=== PATIENT | male | born 1940 | race Caucasian/White ===

== ENCOUNTER 2019-12-25 10:49 | Inpatient (IN) | payer MEDICARE ==
[~2019-12-25] VITALS: Ht 162.6 cm; Wt 66.7 kg
[2019-12-25 11:58] LABS: BASOPHILS % 0.2 % (0.0-1.0); EOSINOPHILS % 0.6 % (0.0-6.0); HEMATOCRIT 29.7 % (38.2-49.6); HEMOGLOBIN 9.5 g/dL (14.0-18.0); LYMPHOCYTES # (AUTO) 0.9 (1.0-3.2); LYMPHOCYTES % 13.9 % (18.0-39.1); MEAN CORPUSCULAR HEMOGLOBIN 29.6 pg (28-32); MEAN CORPUSCULAR VOLUME 92.5 fL (81-99); MONOCYTES # (AUTO) 0.7 (0.2-0.8); MONOCYTES % 10.9 % (4.4-11.3); NEUTROPHILS # (AUTO) 4.6 (2.1-6.9); NEUTROPHILS % 74.2 % (38.7-80.0); PLATELET COUNT 205 x10e3/uL (140-360); RED BLOOD COUNT 3.21 x10e6/uL (4.3-5.7); RED CELL DISTRIBUTION WIDTH 16.1 % (11.7-14.4)
--- NOTE | 2019-12-25 12:02 | Diagnostic Imaging Report ---
EXAMINATION: CHEST SINGLE (PORTABLE) INDICATION: Cough COMPARISON: None FINDINGS: LINES/TUBES:Right IJ tunneled hemodialysis catheter terminates in the right atrium. LUNGS:The lungs are well-inflated. Mild left basilar patchy opacities. PLEURA:No pleural effusion or pneumothorax. MEDIASTINUM:The cardiomediastinal silhouette appears normal in size and shape. Atherosclerotic calcifications of the thoracic aorta. BONES/SOFT TISSUES:No acute osseous injury. ABDOMEN:No free air under the diaphragm. IMPRESSION: Mild left basilar patchy opacities may represent subsegmental atelectasis or alternatively aspiration or pneumonia in the proper clinical setting. Signed by: Angélica Mauricio MD on 12/25/2019 11:59 AM
[2019-12-25 12:06] LABS: INR 1.08; PROTHROMBIN TIME 14.6 seconds (11.9-14.5)
[2019-12-25 12:07] LABS: PARTIAL THROMBOPLASTIN TIME 33.4 seconds (23.8-35.5)
[2019-12-25 12:16] LABS: ALBUMIN 3.5 g/dL (3.5-5.0); ALBUMIN/GLOBULIN RATIO 1.1 (0.8-2.0); ANION GAP 13.8 mmol/L (8-16); CALCIUM 9.3 mg/dL (8.4-10.2); CREATININE, SERUM 1.56 mg/dL (0.72-1.25)
[2019-12-25 12:18] LABS: POTASSIUM 2.8 mmol/L (3.5-5.1)
[2019-12-25 12:22] LABS: CREATINE KINASE MB 1.6 ng/mL (0-5.0)
[2019-12-25] MEDS ORDERED: CEFTRIAXONE SOD 1 GM/NS 50 ML 50 ML IV SCH (12:30)
[2019-12-25] MEDS: PIPERACILLIN/TAZO 2.25 GM 50 ML IV SCH ×2 (13:39→20:24)
[2019-12-25] MEDS ORDERED: POTASSIUM CHLORIDE 20MEQ/15ML UDC NG SCH (14:00)
[2019-12-25] MEDS: AZITHROMYCIN 500MG/NS 250 ML 250 ML IV SCH (14:01)
--- NOTE | 2019-12-25 14:05 | Emergency Department Note ---
History of Present Illnes History of Present Illness Chief Complaint: Respiratory History of Present Illness This is a 79 year old male BROUGHT IN BY EMS FOR EVALUATION OF PNEUMONIA FROM [employer] [employer]. 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 Any updates have been documented here. Past Medical History Recent Fever: No Clinical Suspicion of Infectio: Yes New/Unexplained Change in Ment: Yes Past Medical History: Hypertension Other Surgery: DIALYSIS CATHETER PEG TUBE CEA IVC FILTER-TO PREVENT BLOOD CLOTS CVA Social History Smoking Cessation: Former smoker Counseling Performed: No Alcohol Use: None Any Illegal Drug Use: No TB Exposure/Symptoms: No Physically hurt or threatened: No Family History Family history of heart diseas: No Other Any Pre-Existing Lines (PICC,: No Review of Systems ROS Narrative Unable to obtain ROS: altered mental status (NO SPEECH, HX AND ROS PER DAUGHTER) Review of Systems Constitutional: Reports no symptoms EENTM: Reports no symptoms Cardiovascular: Reports no symptoms Respiratory: Reports as per HPI Gastrointestinal: Reports no symptoms Genitourinary: Reports no symptoms Musculoskeletal: Reports no symptoms Integumentary: Reports no symptoms Neurological: Reports no symptoms Psychological: Reports no symptoms Endocrine: Reports no symptoms Hematological/Lymphatic: Reports no symptoms Physical Exam Related Data Allergies: Coded Allergies: No Known Allergies (Unverified , 12/25/19) Triage Vital Signs Vital Signs Date Time Temp Pulse Resp B/P (MAP) Pulse Ox O2 Delivery O2 Flow Rate FiO2 12/25/19 11:32 71 18 118/83 96 Nasal Cannula 2.0 12/25/19 12:26 98.5 Vital signs reviewed: Yes Physical Exam CONSTITUTIONAL Constitutional: Present well-developed, Present ill appearing (CHRONIC) HENT HENT: Present normocephalic, Present atraumatic, Present oropharynx clear/moist, Present nose normal HENT L/R: Present left ext ear normal, Present right ext ear normal EYES Eyes: Reports PERRL, Reports conjunctivae normal NECK Neck: Present ROM normal PULMONARY Pulmonary: Present effort normal, Present rhonchi CARDIOVASCULAR Cardiovascular: Present regular rhythm, Present heart sounds normal, Present capillary refill normal, Present normal rate GASTROINTESTINAL Abdominal: Present soft, Present nontender, Present bowel sounds normal, Present other (G-TUBE PRESENT) GENITOURINARY Genitourinary: Present exam deferred SKIN Skin: Present warm, Present dry MUSCULOSKELETAL Musculoskeletal: Present ROM normal, Present other (RIGHT TUNNELED IJ HD CATH) NEUROLOGICAL Neurological: Present alert, Present weakness (0/5 STR RIGHT ARM AND LEG), Present other (NO SPEECH) PSYCHOLOGICAL Psychological: Present mood/affect normal, Present judgement normal Results Laboratory Result Diagram: 12/25/19 1120 12/25/19 1120 Laboratory Laboratory Tests Test 12/25/19 12:25 12/25/19 11:20 White Blood Count 6.25 x10e3/uL (4.8-10.8) Red Blood Count 3.21 x10e6/uL (4.3-5.7) Hemoglobin 9.5 g/dL (14.0-18.0) Hematocrit 29.7 % (38.2-49.6) Mean Corpuscular Volume 92.5 fL (81-99) Mean Corpuscular Hemoglobin 29.6 pg (28-32) Mean Corpuscular Hemoglobin Concent 32.0 g/dL (31-35) Red Cell Distribution Width 16.1 % (11.7-14.4) Platelet Count 205 x10e3/uL (140-360) Neutrophils (%) (Auto) 74.2 % (38.7-80.0) Lymphocytes (%) (Auto) 13.9 % (18.0-39.1) Monocytes (%) (Auto) 10.9 % (4.4-11.3) Eosinophils (%) (Auto) 0.6 % (0.0-6.0) Basophils (%) (Auto) 0.2 % (0.0-1.0) Neutrophils # (Auto) 4.6 (2.1-6.9) Lymphocytes # (Auto) 0.9 (1.0-3.2) Monocytes # (Auto) 0.7 (0.2-0.8) Eosinophils # (Auto) 0.0 (0.0-0.4) Basophils # (Auto) 0.0 (0.0-0.1) Absolute Immature Granulocyte (auto 0.01 x10e3/uL (0-0.1) Prothrombin Time 14.6 seconds (11.9-14.5) Prothromb Time International Ratio 1.08 Activated Partial Thromboplast Time 33.4 seconds (23.8-35.5) Sodium Level 141 mmol/L (136-145) Potassium Level 2.8 mmol/L (3.5-5.1) Chloride Level 101 mmol/L (98-107) Carbon Dioxide Level 29 mmol/L (22-29) Anion Gap 13.8 mmol/L (8-16) Blood Urea Nitrogen 36 mg/dL (7-26) Creatinine 1.56 mg/dL (0.72-1.25) Estimat Glomerular Filtration Rate 43 ML/MIN (60-) BUN/Creatinine Ratio 23 (6-25) Glucose Level 117 mg/dL (74-118) Lactic Acid Level 0.8 mmol/L (0.5-2.0) Calcium Level 9.3 mg/dL (8.4-10.2) Magnesium Level 1.7 MG/DL (1.3-2.1) Total Bilirubin 0.7 mg/dL (0.2-1.2) Aspartate Amino Transf (AST/SGOT) 26 IU/L (5-34) Alanine Aminotransferase (ALT/SGPT) 36 IU/L (0-55) Alkaline Phosphatase 58 IU/L (40-150) Creatine Kinase 25 IU/L (30-200) Creatine Kinase MB 1.60 ng/mL (0-5.0) Troponin I 0.059 ng/mL (0-0.300) B-Type Natriuretic Peptide 59.6 pg/mL (0-100) Total Protein 6.6 g/dL (6.5-8.1) Albumin 3.5 g/dL (3.5-5.0) Globulin 3.1 g/dL (2.3-3.5) Albumin/Globulin Ratio 1.1 (0.8-2.0) Lab results reviewed: Yes Imaging Imaging results reviewed: Yes Assessment & Plan Medical Decision Making MDM CBC, CHEM, ECG, CARDIACS, BLOOD CX'S, CXR, LACTIC - R/O PNEUMONIA, VOLUME OVERLOAD (ESRD), CHF, SEPSIS Reassessment Reassessment ADMIT TO Abhi RUEDA I GAVE DARIUS (PT HAD H/O STAPH PNEUMONIA IN July, WILL ALSO COVER FOR ASPIRATION) AND MARCO Assessment & Plan Final Impression: (1) Pneumonia (2) ESRD (end stage renal disease) (3) Hypokalemia Depart Disposition: ADMITTED Last Vital Signs Date Time Temp Pulse Resp B/P (MAP) Pulse Ox O2 Delivery O2 Flow Rate FiO2 12/25/19 12:26 98.5 76 20 132/81 100 Nasal Cannula 2.0 Medications in the ED Ceftriaxone Sodium 50 ml @ 100 mls/hr Q24H IV ; Start 12/25/19 at 12:30; Stop 12/25/19 at 12:04; Status DC Azithromycin 250 ml @ 200 mls/hr Q24H IV ; Start 12/25/19 at 13:00; Stop 01/01/20 at 12:59 Piperacillin Sod/ Tazobactam Sod 50 ml @ 50 mls/hr Q12HR IV Last administered on 12/25/19at 13:39; Admin Dose 50 MLS/HR; Start 12/25/19 at 12:15; Stop 01/01/20 at 12:14 VLADISLAV GALVEZ MD Dec 25, 2019 14:05
--- NOTE | 2019-12-25 15:55 | NUR ---
RCD PT FROM ER BY BED PT IS ALERT BUT NON VERBAL VITALS CHECKED PT RESTING ON BED IV PATENT BY SALINE FLUSH,ADMISSION ASSESSMENT AND HISTORY DONE PARALYSED ON RIGHT SIDE DUE TO CVA PT ON PEG TUBE , FAMILY AT BED SIDE INSTRUCTED THE PT AND FAMILY REGARDING HOSPITAL POLICY AND ROUTINE BED LOW AND LOCKED CALL LIGHT IN REACH
[2019-12-25] MEDS ORDERED: ALBUTEROL/IPRATROPIUM 3 ML NEB NEB PRN (16:00)
[2019-12-25] MEDS ORDERED: ASPIRIN 81 MG CHEW TAB PO ONE (16:00)
[2019-12-25] MEDS ORDERED: AMLODIPINE BESY10 MG PO (16:09)
[2019-12-25 16:30] VITALS: BP 129/82
--- NOTE | 2019-12-25 17:22 | NUR ---
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 At half-way, he was noted to have increased work of breathing with copious secretions. His O2 sat today was down to 88% and was placed on nasal cannula oxygen. He was sent to [facility] ER for further evaluation. Here CXR showed LLL consolidation concerning for pneumonia, likely aspiration. Afebrile with stable vitals. Admitted to acute medical floor for further management and care. Per family at bedside, patient was treated for pneumonia at [facility] in October 2019. During that hospitalization he was declared ESRD and permacath was placed. Since then has been receiving TThS HD. Review of Systems (Patient is non-verbal, however history obtained from family at bedside) General: No fever, chills, or fatigue HEENT: Denies visual changes, hearing loss, congestion, rhinorrhea, or bleeding Respiratory: + SOB, +cough, No hemoptysis Cardiovascular: No chest pain, palpitations, BARRIENTOS, orthopnea, PND, leg edema, or claudication Gastrointestinal: No nausea, vomiting, diarrhea, constipation, or abdominal pain G/U: Denies dysuria, hematuria, incontinence, or discharge Musculoskeletal: No myalgias or arthralgias Neurological: No syncope, seizures, headaches, changes in sensation, or weakness Hematology: No bruising, bleeding, or lymphadenopathy Endocrine: No heat or cold intolerance, hair loss, or weight changes Skin: No rashes, sores, itching, bruising Psychiatric: Denies depression or elevated mood, or anxiety Past Medical History CVA HTN ESRD Past Surgical History PEG tube placement 2019 Family History Stroke in his mother Social History No alcohol use No tobacco use No drug use Allergies NKDA Physical Exam Vitals: Temp: 98.5 P: 70 BP: 111/73 RR: 18 SpO2 100% on 2L General Appearance: The patient is non-verbal, appears to be in moderate distress on 2L nasal cannula HEENT: Head is normocephalic, atraumatic. Nontender sinuses. Pupils are equal and reactive. The nares are patent. Oropharynx is moist and clear without lesions. Neck: Supple without lymphadenopathy. No JVD. 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 Normal S1 and S2 without S3/S4. No murmurs, rubs or gallops. Peripheral pulses symmetric +2. Respiratory / Chest: Course breathsounds in left lung field, primarily in left lower lobe. right upper chest permacath in place with no erythema or discharge Abdomen: Soft, nontender, nondistended with good bowel sounds heard. No clinical organomegaly. Peg tube is in place with no erythema or discharge. Renal: There is no costovertebral angle tenderness. Extremities: Without cyanosis, clubbing or edema. Preserved ROM. Neurological: Unable to assess orientation, is alert and responds to verbal stimuli, rigid RUE and RLE with no autonomous movement. LUE and LLE moving but weak. Assessment/Plan #Aspiration pneumonia - LLL consolidation on CXR, given hx of dysphagia, aspiration PNA most likely - monitor WBC; afebrile with vitals stable at this time - continue Zosyn and azithromycin to cover atypicals, anaerobes, and oral kathy - was treated for PNA at [facility] in October, however this was >1 month ago so will not treat as hospital acquired. #Hypokalemia - K 2.8 on admission, s/p KCL replacement - monitor K and replace carefully given ESRD #ESRD - consulted nephrology for HD while inpatient - on Mon schedule #Hypertension - continue home medications Noel Monterroso MD Internal Medicine
[2019-12-25 18:02] VITALS: BP 129/82
--- NOTE | 2019-12-25 18:11 | NUR ---
PEG TUBE FEEDING JEVITY 1.2 ,20 ML WITH50 ML WATER Q4H
[2019-12-25 18:25] LABS: ANION GAP 13.6 mmol/L (8-16); CALCIUM 9.3 mg/dL (8.4-10.2); CREATININE, SERUM 1.62 mg/dL (0.72-1.25); POTASSIUM 3.6 mmol/L (3.5-5.1)
[2019-12-25] MEDS ORDERED: ACETAMINOPHEN325 M1 PO (18:35)
[2019-12-25] MEDS ORDERED: COMBIVENT RESPIM4 GM IH (18:35)
[2019-12-25] MEDS ORDERED: ALLOPURINOL100 MG PEG (18:35)
[2019-12-25] MEDS ORDERED: ASPIRIN81 MG PEG (18:35)
[2019-12-25] MEDS ORDERED: COREG12.5 MG PEG (18:35)
[2019-12-25] MEDS ORDERED: ATORVASTATIN CA20 MG PEG (18:35)
[2019-12-25] MEDS ORDERED: MELATONIN3 MG PO (18:35)
[2019-12-25] MEDS ORDERED: AMANTADINE100 MG PEG (18:35)
--- NOTE | 2019-12-25 18:41 | NUR ---
PT RESTING ON BED BED SIDE REPORT GIVEN TO ONCOMING NURSE
[2019-12-25 18:45] LABS: CREATINE KINASE MB 1.7 ng/mL (0-5.0)
[2019-12-25] MEDS ORDERED: IPRATROPIUM/ALBUTEROL SULFATE 4 GM INH INH PRN (18:45)
[2019-12-25] MEDS ORDERED: ACETAMINOPHEN 325 MG TAB PO PRN (18:45)
--- NOTE | 2019-12-25 19:00 | NUR ---
FROM DR MCCANN GOT NEW ORDERS FOR POTASSIUM
[2019-12-25] MEDS ORDERED: POTASSIUM CHLORIDE 20MEQ/15ML UDC PEG ONE (19:45)
[2019-12-25 20:00] VITALS: BP 111/78
--- NOTE | 2019-12-25 20:00 | NUR ---
PLACEMENT VERIFIED WITH AUSCULTATION, PEG TUBE FEEDING JEVITY 1.2 @20ML/HR WITH50 ML WATER FLUSHES Q4H CONTINUED, PATIENT TOLERATING FEEDING, INTERMITTENT WET COUGHING NOTED, HOB UP >30 DEGREES DURING FEEDINGS, HELD DURING CARE, PT INCONTINENCE BOWEL AND BLADDER, CARE GIVEN DAUGHTER REMAINS AT BEDSIDE, CALL LIGHT WITHIN PT AND DAUGHTERS REACH
[2019-12-25] MEDS ORDERED: SODIUM CHLORIDE 0.9% 50ML 50 ML ONE (20:19)
[2019-12-25] MEDS: ATORVASTATIN 20 MG TAB PEG SCH (20:24)
[2019-12-25] MEDS: MELATONIN 3 MG TAB PO SCH (20:24)
--- NOTE | 2019-12-25 20:30 | Consultation ---
DATE OF CONSULTATION: Initial Nephrology Consultation REASON FOR CONSULTATION: End-stage renal disease. HISTORY OF PRESENT ILLNESS: Mr. Alaniz is a 79-year-old male, who is a dialysis patient. He gets dialysis regularly on Monday, Monday, and Monday at [facility] [place] [place] in [place]. I saw the patient actually yesterday at the dialysis unit. The patient was brought here to this emergency room because he was having some coughing and some shortness of breath. He was brought by [facility]. The patient has had chronic kidney disease. PAST MEDICAL HISTORY: 1. Hypertension. 2. Chronic kidney disease stage 5. 3. The patient has had a PEG tube placed. 4. He has had carotid endarterectomy in the planus. 5. He has IVC filter in place. 6. He has had stroke in the past also. MEDICINES: As per MAR. REVIEW OF SYSTEMS: As per HPI. PHYSICAL EXAMINATION: VITAL SIGNS: Blood pressure 111/73, pulse 74, respiration 13. GENERAL: The patient is not very verbal. HEENT: No increased JVD. The patient has a tunneled dialysis catheter in the right chest wall area. CARDIOVASCULAR: Regular rhythm. LUNGS: Decreased breath sounds at bases bilaterally. ABDOMEN: Decreased bowel sounds. EXTREMITIES: No edema, cyanosis, or clubbing. LABORATORY RESULTS: Hemoglobin and hematocrit 9.5 and 29.7 respectively, white count 6.25. Sodium 141, potassium 2.8, chloride 101, bicarb 29, BUN and creatinine 36 and 1.56 respectively. IMPRESSION: 1. Chronic kidney disease stage 5. 2. Possible pneumonia. 3. Hypokalemia. 4. Hypertension. PLAN: We will replace the patient's potassium intravenous since that is the most reliable way. His blood pressure is okay at this time. He was dialyzed yesterday. We will get him dialyzed tomorrow. I will follow the patient with you. Thank you for this consultation. Ather MD ARIANA Duarte/AMY /[phone]
--- NOTE | 2019-12-25 20:40 | NUR ---
PT COVID RESULT NEGATIVE PER MARKET SALES MANAGER
[2019-12-25 20:43] VITALS: BP 111/78
[2019-12-25] MEDS: HEPARIN SOD (PORCINE) 5,000 UNIT/ML VIAL SC SCH (22:00)
[2019-12-26] VITALS (11 sets, daily range): BP systolic 106–141; BP diastolic 72–85
--- NOTE | 2019-12-26 | NUR ---
CARDIAC ENZYMES #3 DRAWN AND SENT TO LAB, RESULT PENDING
[2019-12-26] MEDS: ALBUTEROL/IPRATROPIUM 3 ML NEB NEB SCH ×2 (00:35→19:40)
[2019-12-26 01:34] LABS: CREATINE KINASE MB 1.3 ng/mL (0-5.0)
[2019-12-26] MEDS: HEPARIN SOD (PORCINE) 5,000 UNIT/ML VIAL SC SCH ×3 (04:41→19:22)
[2019-12-26 05:12] LABS: BASOPHILS % 0.1 % (0.0-1.0); EOSINOPHILS % 0.1 % (0.0-6.0); HEMATOCRIT 28.9 % (38.2-49.6); HEMOGLOBIN 9.2 g/dL (14.0-18.0); LYMPHOCYTES # (AUTO) 0.8 (1.0-3.2); LYMPHOCYTES % 8.9 % (18.0-39.1); MEAN CORPUSCULAR HEMOGLOBIN 29.3 pg (28-32); MEAN CORPUSCULAR HGB CONC 31.8 g/dL (31-35); MONOCYTES # (AUTO) 0.8 (0.2-0.8); MONOCYTES % 9.5 % (4.4-11.3); NEUTROPHILS # (AUTO) 7.1 (2.1-6.9); NEUTROPHILS % 81.1 % (38.7-80.0); PLATELET COUNT 194 x10e3/uL (140-360); RED BLOOD COUNT 3.14 x10e6/uL (4.3-5.7); RED CELL DISTRIBUTION WIDTH 16.1 % (11.7-14.4)
[2019-12-26 05:47] LABS: ALBUMIN 3.2 g/dL (3.5-5.0); ALBUMIN/GLOBULIN RATIO 1.1 (0.8-2.0); ANION GAP 13.4 mmol/L (8-16); CALCIUM 8.8 mg/dL (8.4-10.2); CREATININE, SERUM 1.59 mg/dL (0.72-1.25); POTASSIUM 3.4 mmol/L (3.5-5.1)
[2019-12-26 06:33] LABS: MAGNESIUM 1.7 MG/DL (1.3-2.1); PHOSPHORUS 2.9 MG/DL (2.3-4.7)
--- NOTE | 2019-12-26 09:20 | NUR ---
Progress Note Subjective No acute overnight events. Patient had calm night and per family his coughing has improved. No longer as labored in his breathing. Physical Exam Vitals: Temp: 98.4 P: 70 BP: 141/85 RR: 20 SpO2 98% on 2L General Appearance: The patient is non-verbal, appears to be in mild distress on 2L nasal cannula HEENT: Head is normocephalic, atraumatic. Nontender sinuses. Pupils are equal and reactive. The nares are patent. Oropharynx is moist and clear without lesions. Neck: Supple without lymphadenopathy. No JVD. 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 Normal S1 and S2 without S3/S4. No murmurs, rubs or gallops. Peripheral pulses symmetric +2. Respiratory / Chest: Course breathsounds in left lung field, primarily in left lower lobe. right upper chest permacath in place with no erythema or discharge Abdomen: Soft, nontender, nondistended with good bowel sounds heard. No clinical organomegaly. Peg tube is in place with no erythema or discharge. Renal: There is no costovertebral angle tenderness. Extremities: Without cyanosis, clubbing or edema. Preserved ROM. Neurological: Unable to assess orientation, is alert and responds to verbal stimuli, rigid RUE and RLE with no autonomous movement. LUE and LLE moving but weak. Assessment/Plan #Aspiration pneumonia - DDX: Community acquired pneumonia, aspiration pneumonia, MRSA Pneumonia - LLL consolidation on CXR, given hx of dysphagia, aspiration PNA most likely - was treated for PNA at [facility] in October, however this was >1 month ago so will not treat as hospital acquired. 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
[2019-12-26] MEDS: ASPIRIN 81 MG CHEW TAB PEG SCH (10:18)
[2019-12-26] MEDS: ALLOPURINOL 100 MG TAB PEG SCH (10:18)
[2019-12-26] MEDS: AMANTADINE HCL 100 MG CAP PEG SCH ×2 (10:18→19:21)
[2019-12-26] MEDS: CARVEDILOL 12.5 MG TAB PEG SCH ×2 (10:18→19:36)
[2019-12-26] MEDS: PIPERACILLIN/TAZO 2.25 GM 50 ML IV SCH ×3 (10:19→19:22)
--- NOTE | 2019-12-26 12:27 | NUR ---
Speech Therapy NOTE: Pt sleeping, fatigued, unable to participate in BSE at this time. Spoke at length with daughter, Mary. Pt with history of CVA, COVID, peg tube placement, and tracheostomy. in July of this year. Pt with limited verbalizations and reduced processing. Discussed at length importance of oral care, supplies brought to room for daughter. Will follow up with pt in afternoon on 12/27/19 as pt is more alert at that time of day. Plan to complete oral care and BSE on 12/27/19, it is NOT a dialysis day and pt level of alertness should be improved. Handoff to DIANA Zepeda
[2019-12-26] MEDS ORDERED: POTASSIUM CHLORIDE 20 MEQ TAB CR PO ONE (13:45)
[2019-12-26] MEDS: AZITHROMYCIN 500MG/NS 250 ML 250 ML IV SCH (13:46)
--- NOTE | 2019-12-26 15:46 | NUR ---
Skilled PT services not indicated at this time since patient is at his baseline functional level and due to poor rehab potential. Thank you Addendum: 12/26/19 at 1547 by Marco A valdivia PT Amended: Links added.
--- NOTE | 2019-12-26 15:56 | NUR ---
Nutrition Intervention Note RD Recommendation(s) for Physician: -Recommend modifying formula to Nepro @ goal rate of 50 mL/hr (provides 2160 kcal, 97 g protein, and 872 mL water) -Water/fluid management per MD -Speech therapy to assess swallowing ability Plan of Care: RD following, monitoring for tolerance and adequacy, tube feed recommendation Nutrition reason for involvement: consult, diagnosis ESRD, and enteral nutriton RD Assessment (12/26/19) Pt is a 79 year old male admitted with ESRD, hypokalemia, and pneumonia. RD received consult. Pt was sleeping at time of visit; therefore, spoke to pts daughter at bedside. Pts daughter stated pt had lost weight and used to weigh 175 lbs in July 2019. Pt currently has a weight of 147 lbs in chart. This would be a 16% weight loss in 5 months which is considered to be significant weight loss. Pt is from a senior care and has a PEG tube. Pts daughter was unsure of pts usual tube feed formula or regimen. Unable to perform NFPE at time of visit since pt was sleeping. No N/V reported. Speech therapy attempted to evaluate pt but it is noted that pt was sleeping and too lethargic for assessment. Recommendations provided. Will continue to monitor. Principal Problems/Diagnoses: ESRD, hypokalemia, and pneumonia PMH: Hypertension, Chronic kidney disease stage 5, PEG tube, carotid endarterectomy in the planus, He has IVC filter in place, He has had stroke in the past also. I/O: 120/- GI: flat/soft abdomen Skin: discolored sacrum Labs: (12/25) Na 143, K 3.4, BUN 42, Cr 1.59, Glu 162, Ca 8.8 Meds: antibiotics, heparin, lipitor Ht: 64 in Wt: 147 lbs BMI: 25.2 kg/m2 IBW: 130 lbs Malnutrition Evaluation (12/26/19) The patient does not meet criteria for a specified degree of malnutrition at this time. Will re-evaluate at follow-up as appropriate. Energy intake: Unable to assess Weight loss: >10% in ~ 6 months (Chronic) Fat loss: unable to evaluate (pt was sleeping) Muscle loss: unable to evaluate (pt was sleeping) Supporting Evidence: Fluid accumulation: no edema per MD note Functional Status: unable to evaluate Nutrition Prescription (Diet Order): Jevity 1.2 @ goal of 60 mL/hr infusing at 20 mL/hr at time of visit Estimated Nutritional Needs: 3755-2316 calories/day (30-35 kcal/kg CBW) 80-100 g protein/day (1.2-1.5 g pro/kg CBW) Diet Adequacy: Not meeting calorie needs, Not meeting protein needs Tolerance: Tolerating TF Diet Education Needs Assessment: Diet education not indicated Nutrition Care Level: high Nutrition Diagnosis: Inadequate oral intake related to decreased ability to consume sufficient energy as evidenced by pt requiring enteral nutrition. Goal: Patient will meet 75-100% of estimated needs by follow up Progress: N/A Interventions: - Composition, Rate, Route, Recommended Modifications, Collaboration with other providers Monitoring/Evaluation: -Total energy intake, Total protein intake, Formula/Solution, Weight change Signed: Radha Elias RD, LD
[2019-12-26] MEDS ORDERED: HEPARIN SOD (PORCINE) 1000 UNIT/ML SDV IV PRN (17:00)
[2019-12-26] MEDS ORDERED: SODIUM CHLORIDE 0.9% 1000ML 2,000 ML IV PRN (17:00)
[2019-12-26] MEDS: EPOETIN ALFA-EPBX 10,000 UNIT/ML VIAL SC SCH (19:21)
[2019-12-26] MEDS: ATORVASTATIN 20 MG TAB PEG SCH (19:21)
[2019-12-26] MEDS: MELATONIN 3 MG TAB PO SCH (19:21)
[2019-12-26] MEDS ORDERED: SODIUM CHLORIDE 0.9% 50ML 50 ML ONE (19:26)
[2019-12-27] VITALS (10 sets, daily range): BP systolic 102–136; BP diastolic 65–83
[2019-12-27] MEDS: ALBUTEROL/IPRATROPIUM 3 ML NEB NEB SCH ×6 (00:15→19:15)
[2019-12-27] MEDS: PIPERACILLIN/TAZO 2.25 GM 50 ML IV SCH ×4 (03:29→21:01)
[2019-12-27] MEDS: HEPARIN SOD (PORCINE) 5,000 UNIT/ML VIAL SC SCH ×3 (04:36→22:35)
[2019-12-27 04:49] LABS: BASOPHILS % 0.2 % (0.0-1.0); EOSINOPHILS # (AUTO) 0.1 (0.0-0.4); EOSINOPHILS % 2.1 % (0.0-6.0); HEMATOCRIT 28.3 % (38.2-49.6); HEMOGLOBIN 8.9 g/dL (14.0-18.0); LYMPHOCYTES # (AUTO) 1.1 (1.0-3.2); LYMPHOCYTES % 16.8 % (18.0-39.1); MEAN CORPUSCULAR HEMOGLOBIN 29.5 pg (28-32); MEAN CORPUSCULAR HGB CONC 31.4 g/dL (31-35); MEAN CORPUSCULAR VOLUME 93.7 fL (81-99); MONOCYTES # (AUTO) 0.8 (0.2-0.8); MONOCYTES % 11.6 % (4.4-11.3); NEUTROPHILS # (AUTO) 4.5 (2.1-6.9); NEUTROPHILS % 68.7 % (38.7-80.0); PLATELET COUNT 208 x10e3/uL (140-360); RED BLOOD COUNT 3.02 x10e6/uL (4.3-5.7); RED CELL DISTRIBUTION WIDTH 16.1 % (11.7-14.4)
[2019-12-27 05:18] LABS: ANION GAP 12.5 mmol/L (8-16); CALCIUM 8.9 mg/dL (8.4-10.2); CREATININE, SERUM 1.29 mg/dL (0.72-1.25); POTASSIUM 3.5 mmol/L (3.5-5.1)
[2019-12-27] MEDS: ASPIRIN 81 MG CHEW TAB PEG SCH (09:27)
[2019-12-27] MEDS: CARVEDILOL 12.5 MG TAB PEG SCH ×2 (09:28→17:01)
[2019-12-27] MEDS: ALLOPURINOL 100 MG TAB PEG SCH (09:28)
[2019-12-27] MEDS: AMANTADINE HCL 100 MG CAP PEG SCH ×2 (09:28→17:01)
--- NOTE | 2019-12-27 10:14 | NUR ---
NEW TUBE FEED WAS STARTED AT 50CC/HR
--- NOTE | 2019-12-27 11:41 | NUR ---
Received SNF eval order. Spoke to pt's daughter Sheela at bedside and explained need for continued IV abx. She states plan is to return pt back to [facility]. Choice letter signed. Copy given to daughter. IMM letter discussed. She verbalized understanding. Copy given. Signed choice letter and IMM placed in chart. SNF referral/clinical faxed to [facility] at [phone] / P [phone] Tere with admissions was informed of SNF referral.
--- NOTE | 2019-12-27 11:43 | NUR ---
Progress Note Subjective Desaturations to 93% overnight when patient would remove his nasal cannula, but improved after being placed back on 2L. Otherwise no acute overnight medical events. Physical Exam Vitals: Temp: 98.5 P: 66 BP: 113/69 RR: 16 SpO2 100% on 2L General Appearance: The patient is non-verbal, appears to be in mild distress on 2L nasal cannula HEENT: Head is normocephalic, atraumatic. Nontender sinuses. Pupils are equal and reactive. The nares are patent. Oropharynx is moist and clear without lesions. Neck: Supple without lymphadenopathy. No JVD. 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 Normal S1 and S2 without S3/S4. No murmurs, rubs or gallops. Peripheral pulses symmetric +2. Respiratory / Chest: Improved but Course breathsounds in left lung field, primarily in left lower lobe. right upper chest permacath in place with no erythema or discharge Abdomen: Soft, nontender, nondistended with good bowel sounds heard. No clinical organomegaly. Peg tube is in place with no erythema or discharge. Renal: There is no costovertebral angle tenderness. Extremities: Without cyanosis, clubbing or edema. Preserved ROM. Neurological: Unable to assess orientation, is alert and responds to verbal stimuli, rigid RUE and RLE with no autonomous movement. LUE and LLE moving but weak. Assessment/Plan #Aspiration pneumonia - normal WBC; afebrile with vitals stable at this time - continue Zosyn and azithromycin to cover atypicals, anaerobes, and oral kathy - d/c azithromycin after 3rd dose - continue zosyn for total of 7 days ending on 12/31, discussed with case management as he needs SNF for IV abx #acute hypoxemic respiratory failure secondary to pneumonia - unable to wean at this time - will need continued [facility]L [facility] #Hypokalemia, improved - improved after replacement and HD #ESRD - consulted nephrology for HD while inpatient - on Mon schedule - Dr Duarte following, appreciate assistance - s/p HD on 12/25 #Hypertension - continue home medications #Dysphagia secondary to CVA - speech therapy consulted for assistance; suspect that patient should be able to tolerate some PO nutrition - PEG tube feeds #Functional quadriplegia - PT consulted, patient currently at his baseline, however family has been advised on PT exercises - strict bed rest Noel Monterroso MD Internal Medicine
[2019-12-27] MEDS: AZITHROMYCIN 500MG/NS 250 ML 250 ML IV SCH (12:47)
[2019-12-27] MEDS ORDERED: PIPERACIL-TAZ2.25 GM IV (20:35)
[2019-12-27] MEDS ORDERED: HEPARIN SO1000 UNIT1 IV (20:35)
[2019-12-27] MEDS ORDERED: RETACRIT10000 UNIT SC (20:35)
[2019-12-27] MEDS: MELATONIN 3 MG TAB PO SCH (21:00)
[2019-12-27] MEDS: ATORVASTATIN 20 MG TAB PEG SCH (21:01)
[2019-12-28] VITALS (9 sets, daily range): BP systolic 102–144; BP diastolic 67–88
[2019-12-28] MEDS: ALBUTEROL/IPRATROPIUM 3 ML NEB NEB SCH ×6 (03:45→23:59)
[2019-12-28 04:58] LABS: BASOPHILS % 0.4 % (0.0-1.0); EOSINOPHILS # (AUTO) 0.2 (0.0-0.4); EOSINOPHILS % 4.8 % (0.0-6.0); HEMATOCRIT 28.3 % (38.2-49.6); HEMOGLOBIN 8.8 g/dL (14.0-18.0); LYMPHOCYTES # (AUTO) 1.1 (1.0-3.2); LYMPHOCYTES % 21.1 % (18.0-39.1); MEAN CORPUSCULAR HGB CONC 31.1 g/dL (31-35); MEAN CORPUSCULAR VOLUME 96.6 fL (81-99); MONOCYTES # (AUTO) 0.6 (0.2-0.8); NEUTROPHILS # (AUTO) 3.1 (2.1-6.9); NEUTROPHILS % 61.7 % (38.7-80.0); PLATELET COUNT 183 x10e3/uL (140-360); RED BLOOD COUNT 2.93 x10e6/uL (4.3-5.7); RED CELL DISTRIBUTION WIDTH 16.1 % (11.7-14.4)
[2019-12-28 05:15] LABS: ANION GAP 12.4 mmol/L (8-16); CALCIUM 9.3 mg/dL (8.4-10.2); CREATININE, SERUM 1.72 mg/dL (0.72-1.25); POTASSIUM 3.4 mmol/L (3.5-5.1)
[2019-12-28] MEDS: PIPERACILLIN/TAZO 2.25 GM 50 ML IV SCH ×4 (05:29→21:18)
[2019-12-28] MEDS: HEPARIN SOD (PORCINE) 5,000 UNIT/ML VIAL SC SCH ×3 (05:31→21:18)
[2019-12-28] MEDS: CARVEDILOL 12.5 MG TAB PEG SCH ×2 (08:42→16:27)
[2019-12-28] MEDS: ASPIRIN 81 MG CHEW TAB PEG SCH (08:42)
[2019-12-28] MEDS: AMANTADINE HCL 100 MG CAP PEG SCH ×2 (08:43→16:27)
[2019-12-28] MEDS: ALLOPURINOL 100 MG TAB PEG SCH (09:00)
--- NOTE | 2019-12-28 09:01 | NUR ---
started new bottle of tube feeds at ordered 50mL/hr. patient is currently resting in bed receiving dialysis
[2019-12-28] MEDS ORDERED: ALBUMIN 25% 12.5GM 0.25 GM/ML BTL IV PRN (10:45)
[2019-12-28] MEDS: AZITHROMYCIN 500MG/NS 250 ML 250 ML IV SCH (12:40)
--- NOTE | 2019-12-28 14:24 | Progress Note ---
DATE: 12/28/2019 Renal Progress Note SUBJECTIVE: The patient underwent hemodialysis earlier this morning and the patient's daughter is at the bedside. The patient is resting comfortably. OBJECTIVE: VITAL SIGNS: Stable. GENERAL: The patient is in no acute distress. HEENT: No increased JVD. CARDIOVASCULAR: Regular rate and rhythm. LUNGS: Decreased breath sounds. ABDOMEN: Positive bowel sounds. EXTREMITIES: No edema. LABORATORY RESULTS: Sodium 145, potassium 3.4, chloride 107, bicarb 29, BUN and creatinine 38 and 1.72 respectively. IMPRESSION: 1. Chronic kidney disease stage 5. 2. Hypokalemia. 3. Pneumonia. PLAN: The patient underwent dialysis today. We used a 4 potassium bath, 2.5 calcium for 3 hours and 15 minutes, we did not pull off any fluid. The patient tolerated the dialysis well. Ather MD ARIANA Duarte/AMY /[id number]
[2019-12-28] MEDS: EPOETIN ALFA-EPBX 10,000 UNIT/ML VIAL SC SCH (14:25)
--- NOTE | 2019-12-28 19:00 | NUR ---
Received patient awake, occasional coughing noted, head of the bed > 30 degrees. Enteral feeding to PEG tube. Aspiration precaution. Bed alarm on. Daughter at bedside, call light within easy reach, advised to call for assistance anytime. Will continue to monitor patient
[2019-12-28] MEDS: ZOLPIDEM TARTRATE 5 MG TAB PO PRN (21:07)
[2019-12-28] MEDS: MELATONIN 3 MG TAB PO SCH (21:07)
[2019-12-28] MEDS: ATORVASTATIN 20 MG TAB PEG SCH (21:07)
[2019-12-29] VITALS (7 sets, daily range): BP systolic 106–152; BP diastolic 71–90
[2019-12-29] MEDS: ALBUTEROL/IPRATROPIUM 3 ML NEB NEB SCH ×5 (04:20→22:20)
[2019-12-29] MEDS: PIPERACILLIN/TAZO 2.25 GM 50 ML IV SCH ×4 (04:27→23:06)
--- NOTE | 2019-12-29 05:00 | NUR ---
Suctioned patient, thick whitish sputum in the canister noted. Changed new feeding bottle Nephro and enteral feeding bags. New feeding syringe at bedside.
[2019-12-29] MEDS: HEPARIN SOD (PORCINE) 5,000 UNIT/ML VIAL SC SCH ×3 (05:47→22:00)
[2019-12-29] MEDS ORDERED: POTASSIUM CHLORIDE 10MEQ EA PEG ONE (07:45)
[2019-12-29] MEDS: ASPIRIN 81 MG CHEW TAB PEG SCH (09:17)
[2019-12-29] MEDS: CARVEDILOL 12.5 MG TAB PEG SCH ×2 (09:17→18:32)
[2019-12-29] MEDS: AMANTADINE HCL 100 MG CAP PEG SCH ×2 (09:17→18:32)
[2019-12-29] MEDS: ALLOPURINOL 100 MG TAB PEG SCH (09:17)
[2019-12-29] MEDS ORDERED: POTASSIUM CHLORIDE 20MEQ/15ML UDC PEG ONE (10:30)
--- NOTE | 2019-12-29 10:48 | Diagnostic Imaging Report ---
EXAMINATION: CHEST SINGLE (PORTABLE) INDICATION: CONGESTED COMPARISON: Chest radiograph 12/25/2019. FINDINGS: TUBES and LINES: Right IJ tunneled hemodialysis catheter terminates in the right atrium. LUNGS: Lungs are well inflated. There are patchy opacities in the left lower lung. Mild bronchial wall thickening. PLEURA: No pleural effusion or pneumothorax. HEART AND MEDIASTINUM: The cardiomediastinal silhouette is unremarkable. The aorta is ectatic and tortuous with atherosclerotic calcifications. BONES AND SOFT TISSUES: No acute osseous lesion. Soft tissues are unremarkable. UPPER ABDOMEN: No free air under the diaphragm. IMPRESSION: Patchy opacities in the left lower lung, which may represent atelectasis or pneumonia in the appropriate clinical setting. Signed by: Dr. Kell Christopher MD on 12/29/2019 10:45 AM
--- NOTE | 2019-12-29 12:50 | NUR ---
respiratory at the bedside performing NT suction. the sputum that is being suctioned is cream in color and resembles the tube feeding that the patient is receiving. feeding was stopped and Dr. Abhi Monterroso was paged. waiting for callback
[2019-12-29] MEDS: AZITHROMYCIN 500MG/NS 250 ML 250 ML IV SCH (13:08)
--- NOTE | 2019-12-29 13:30 | NUR ---
received call back from Dr Abhi Monterroso and got orders to hold tube feeding
--- OUTSIDE RECORDS SUMMARY | 2019-12-29 15:32 | XMS REPORT | Continuity of Care Document ---
Author Author [facility] Organization [facility] Address [address] [place] [phone] Phone Unavailable Care Team Providers Care Entry Operator Name Role Phone Abhi RUEDA Attleonela Unavailable Abhi RUEDA Admleonela Unavailable Problems This patient has no known problems. Allergies, Adverse Reactions, Alerts This patient has no known allergies or adverse reactions. Medications This patient has no known medications. Procedures This patient has no known procedures. Results Test Description Test Time Test Comments Results Result Comments Source CHEST SINGLE (PORTABLE) 2019-12-29 10:43:00 [place] [address] Patient Name: CLARY HAWKINS MR #: [id number] : 1940 Age/Sex: 79/M Req #: [id number] [facility] Physician: PETE RUEDA MD Ordered by: DEDE RUEDA MD Report #: [id number] Location: MED/SURG2 Room/Bed: [facility] Procedure: [id number] DX/CHEST SINGLE (PORTABLE) Exam Date: 12/29/19 Exam Time: 0845 REPORT STATUS: Signed EXAMINATION: CHEST SINGLE (PORTABLE) INDICATION: CONGESTED COMPARISON: Chest radiograph 12/25/2019. FINDINGS: TUBES and LINES: Right IJ tunneled hemodialysis catheter terminates in the right atrium. LUNGS: Lungs are well inflated. There are patchy opacities in the left lower lung. Mild bronchial wall thickening. PLEURA: No pleural effusion or pneumothorax. HEART AND MEDIASTINUM: The cardiomediastinal silhouette is unremarkable. The aorta is ectatic and tortuous with atherosclerotic calcifications. BONES AND SOFT TISSUES: No acute osseous lesion. Soft tissues are unremarkable. UPPER ABDOMEN: No free air under the diaphragm. IMPRESSION: Patchy opacities in the left lower lung, which may represent atelectasis or pneumonia in the appropriate clinical setting. Signed by: Dr. Татьяна Whaley MD on 12/29/2019 10:45 AM Dictated By: ТАТЬЯНА WHALEY MD 104 Transcribed By: JULIENNE on 12/29/19 104 COPY TO: DEDE RUEDA MD CHEST SINGLE (PORTABLE) 2019-12-25 11:58:00 [place] [address] Patient Name: CLARY HAWKINS MR #: [id number] : 1940 Age/Sex: 79/M Req #: [id number] Adm Physician: Ordered by: VLADISLAV GALVEZ MD Report #: [id number] Location: ER Room/Bed: Procedure: [id number] DX/CHEST SINGLE (PORTABLE) Exam Date: 12/25/19 Exam Time: 1130 REPORT STATUS: Signed EXAMINATION: CHEST SINGLE (PORTABLE) INDICATION: Cough COMPARISON: None FINDINGS: LINES/TUBES:Right IJ tunneled hemodialysis catheter terminates in the right atrium. LUNGS:The lungs are well-inflated. Mild left basilar patchy opac ities. PLEURA:No pleural effusion or pneumothorax. MEDIASTINUM:The cardiomediastinal silhouette appears normal in size and shape. Atherosclerotic calcifications of the thoracic aorta. BONES/SOFT TISSUES:No acute osseous injury. ABDOMEN:No free air under the diaphragm. IMPRESSION: Mild left basilar patchy opacities may represent subsegmental atelectasis or alternatively aspiration or pneumonia in the proper clinical setting. Signed by: Shiva Clark MD on 12/25/2019 11:59 AM Dictated By: SHIVA CLARK MD [id number] Transcribed By: JULIENNE on 12/25/19 1159 COPY TO: VLADISLAV GALVEZ MD
--- OUTSIDE RECORDS SUMMARY | 2019-12-29 15:34 | XMS REPORT | Continuity of Care Document ---
Author Author [facility] Organization [facility] Address [address] [place] [phone] Phone Unavailable Care Team Providers Care Rating Officer Name Role Phone Abhi RUEDA Attleonela Unavailable Abhi RUEDA Admleonela Unavailable Problems This patient has no known problems. Allergies, Adverse Reactions, Alerts This patient has no known allergies or adverse reactions. Medications This patient has no known medications. Procedures This patient has no known procedures. Results Test Description Test Time Test Comments Results Result Comments Source CHEST SINGLE (PORTABLE) 2019-12-29 10:43:00 [place] [address] Patient Name: CLARY HAWKINS MR #: [id number] : 1940 Age/Sex: 79/M Req #: [id number] [facility] Physician: PETE RUEDA MD Ordered by: DEDE RUEDA MD Report #: [id number] Location: MED/SURG2 Room/Bed: [facility] Procedure: [id number] DX/CHEST SINGLE (PORTABLE) Exam Date: 12/29/19 Exam [...] RUEDA MD CHEST SINGLE (PORTABLE) 2019-12-25 11:58:00 [place] [address] Patient Name: CLARY HAWKINS MR #: [id number] : 1940 Age/Sex: 79/M Req #: [id number] Adm Physician: Ordered by: VLADISLAV GALVEZ MD Report #: [id number] Location: ER Room/Bed: Procedure: [id number] DX/CHEST SINGLE (PORTABLE) Exam Date: 12/25/19 Exam [...]
--- NOTE | 2019-12-29 15:44 | Progress Note ---
DATE: 12/29/2019 Renal Progress Note SUBJECTIVE: Events over the past 24 hours have been noted. The patient's daughter is at the bedside they suctioned a lot of phlegm from his respiratory tract. PHYSICAL EXAMINATION: VITAL SIGNS: Blood pressure 106/71, pulse 70, and respirations 20. GENERAL: The patient is in no acute distress. HEENT: No increased JVD. CARDIOVASCULAR: Regular rate and rhythm. LUNGS: Some high-pitched squeals and some rales bilaterally, but they seem to be a little bit less than they were yesterday. ABDOMEN: Positive bowel sounds. EXTREMITIES: No edema. The patient has a tunneled dialysis catheter at the right chest wall area. LABORATORY RESULTS: No labs from today. IMPRESSION: 1. Chronic kidney disease stage 5. 2. Pneumonia. 3. Hypokalemia. PLAN: The patient was dialyzed with a high potassium bath yesterday and the patient also received some potassium today. The patient is due again for dialysis tomorrow. Volume status is okay. Labs will be checked again tomorrow. Continue current management. Ather MD ARIANA Duarte/AMY /[id number]
[2019-12-29] MEDS: METOCLOPRAMIDE HCL 10 MG/2ML VIAL IV SCH (18:32)
[2019-12-29] MEDS: MELATONIN 3 MG TAB PO SCH (22:00)
[2019-12-29] MEDS: ATORVASTATIN 20 MG TAB PEG SCH (22:00)
[2019-12-29] MEDS ORDERED: SODIUM CHLORIDE 0.9% 50ML 50 ML ONE (22:20)
[2019-12-30] VITALS (8 sets, daily range): BP systolic 103–144; BP diastolic 66–88
[2019-12-30] MEDS: METOCLOPRAMIDE HCL 10 MG/2ML VIAL IV SCH ×4 (00:11→17:26)
[2019-12-30] MEDS: ZOLPIDEM TARTRATE 5 MG TAB PO PRN ×2 (00:15→21:09)
[2019-12-30] MEDS: ALBUTEROL/IPRATROPIUM 3 ML NEB NEB SCH ×6 (02:10→23:25)
[2019-12-30] MEDS: PIPERACILLIN/TAZO 2.25 GM 50 ML IV SCH ×4 (03:51→21:09)
[2019-12-30] MEDS: HEPARIN SOD (PORCINE) 5,000 UNIT/ML VIAL SC SCH ×3 (05:06→21:09)
[2019-12-30 05:46] LABS: BASOPHILS % 0.3 % (0.0-1.0); EOSINOPHILS # (AUTO) 0.2 (0.0-0.4); EOSINOPHILS % 2.2 % (0.0-6.0); HEMATOCRIT 26.7 % (38.2-49.6); HEMOGLOBIN 8.3 g/dL (14.0-18.0); LYMPHOCYTES # (AUTO) 1.6 (1.0-3.2); LYMPHOCYTES % 20.8 % (18.0-39.1); MEAN CORPUSCULAR HEMOGLOBIN 29.5 pg (28-32); MEAN CORPUSCULAR HGB CONC 31.1 g/dL (31-35); MONOCYTES # (AUTO) 0.7 (0.2-0.8); MONOCYTES % 8.8 % (4.4-11.3); NEUTROPHILS # (AUTO) 5.1 (2.1-6.9); NEUTROPHILS % 66.7 % (38.7-80.0); PLATELET COUNT 226 x10e3/uL (140-360); RED BLOOD COUNT 2.81 x10e6/uL (4.3-5.7); RED CELL DISTRIBUTION WIDTH 15.9 % (11.7-14.4)
[2019-12-30 05:55] LABS: ANION GAP 12.3 mmol/L (8-16); CALCIUM 9.3 mg/dL (8.4-10.2); CREATININE, SERUM 1.76 mg/dL (0.72-1.25); POTASSIUM 4.3 mmol/L (3.5-5.1)
--- NOTE | 2019-12-30 07:00 | NUR ---
Bedside report and walking rounds completed with oncoming nurse. Patient in bed, daughter at bedside, with call light within reach. No issues or concerns noted.
--- NOTE | 2019-12-30 07:10 | NUR ---
RCD PT BED PT IS ALERT AND NON VERBAL RESTING ON BED FAMILY AT BED SIDE BED LOW AND LOCKED CALL LIGHT IN REACH
[2019-12-30] MEDS: ALLOPURINOL 100 MG TAB PEG SCH (09:00)
[2019-12-30] MEDS: CARVEDILOL 12.5 MG TAB PEG SCH ×2 (09:00→17:00)
[2019-12-30] MEDS: ASPIRIN 81 MG CHEW TAB PEG SCH (09:00)
[2019-12-30] MEDS: AMANTADINE HCL 100 MG CAP PEG SCH ×2 (09:00→17:00)
[2019-12-30] MEDS: POLYETHYLENE GLYCOL 3350 17 GM PACK PO SCH ×2 (10:00→17:00)
--- NOTE | 2019-12-30 10:00 | NUR ---
TUBE FEEDING STARTED NEPHRO AT 50 ML /HR
[2019-12-30] MEDS: AZITHROMYCIN 500MG/NS 250 ML 250 ML IV SCH (13:00)
--- NOTE | 2019-12-30 15:53 | Progress Note ---
DATE: Renal Progress Note SUBJECTIVE: Events over the 24 hours have been noted. The patient's daughter is at the patient's bedside. PHYSICAL EXAMINATION: VITAL SIGNS: Blood pressure 124/77, pulse 81, respiration 19, afebrile. GENERAL: The patient is in no acute distress. HEENT: No increased JVD. CARDIOVASCULAR: Regular rate and rhythm. LUNGS: Clear to auscultation. ABDOMEN: Decreased bowel sounds. The patient has a PEG tube. EXTREMITIES: No edema, cyanosis or clubbing. LABORATORY RESULTS: Hemoglobin and hematocrit 8.3 and 26.7 respectively. Sodium 141, potassium 4.3, chloride 101, bicarbonate 28, BUN and creatinine 46 and 1.76 respectively. IMPRESSION: 1. Chronic kidney disease stage 5. 2. Pneumonia. PLAN: The patient is euvolemic today. Electrolytes are okay. His hyperkalemia is corrected. He is due for dialysis tomorrow. He will be dialyzed tomorrow according to the schedule. Ather MD ARIANA Duarte/AMY /[id number]
--- NOTE | 2019-12-30 15:56 | NUR ---
Nutrition Intervention Note RD Recommendation(s) for Physician: -Continue TF at goal rate of 50 mL/hr (provides 2160 kcal, 97 g protein, and 872 mL water) -Water/fluid management per MD Plan of Care: RD following, monitoring for tolerance and adequacy, tube feed recommendation Nutrition reason for involvement: follow up RD Assessment 12/29: Follow up. Pt awake at time of visit, non-verbal. Daughter at bedside reports pt has a MBS today. Pt tolerating TF at goal rate. All questions and concerns addressed at time of visit. Per daughter, pt does not tolerate bolus TF, does better on continuous TF. Chart reviewed. Will continue to monitor. (12/26/19) Pt is a 79 year old male admitted with ESRD, hypokalemia, and pneumonia. RD received consult. Pt was sleeping at time of visit; therefore, spoke to pts daughter at bedside. Pts daughter stated pt had lost weight and used to weigh 175 lbs in July 2019. Pt currently has a weight of 147 lbs in chart. This would be a 16% weight loss in 5 months which is considered to be significant weight loss. Pt is from a custodial and has a PEG tube. Pts daughter was unsure of pts usual tube feed formula or regimen. Unable to perform NFPE at time of visit since pt was sleeping. No N/V reported. Speech therapy attempted to evaluate pt but it is noted that pt was sleeping and too lethargic for assessment. Recommendations provided. Will continue to monitor. Principal Problems/Diagnoses: ESRD, hypokalemia, and pneumonia PMH: Hypertension, Chronic kidney disease stage 5, PEG tube, carotid endarterectomy in the planus, He has IVC filter in place, He has had stroke in the past also. GI: abd flat, soft, Last BM 12/28- liquid Skin: discolored sacrum Labs: 12/29: Na 141, K 4.3, BUN 46, Cr 1.76, Gluc 89, Ca 9.3 (12/25) Na 143, K 3.4, BUN 42, Cr 1.59, Glu 162, Ca 8.8 Meds: abx, reglan, miralax, allopurinol, melatonin, lipitor Ht: 64 in Wt: 147 lbs BMI: 25.2 kg/m2 IBW: 130 lbs Malnutrition Evaluation (12/26/19) The patient meets criteria for MODERATE protein-calorie malnutrition. Energy intake: none, TF meeting needs Weight loss: Severe 16% wt loss in 5 months Fat loss: none, ample skinfold thickness to arm Muscle loss: moderate, some clavicle protrusion Supporting Evidence: Fluid accumulation: none Functional Status: no changes per daughter Nutrition Prescription (Diet Order): Nepro at 50 ml/hr (2160 kcal, 97 g protein, and 872 mL water) Estimated Nutritional Needs: 2774-0414 calories/day (30-35 kcal/kg CBW) 80-100 g protein/day (1.2-1.5 g pro/kg CBW) Diet Adequacy: Not meeting calorie needs, Not meeting protein needs Tolerance: Tolerating TF Diet Education Needs Assessment: Diet education not indicated Nutrition Care Level: moderate Nutrition Diagnosis: Inadequate oral intake related to decreased ability to consume sufficient energy as evidenced by pt requiring enteral nutrition. Goal: Patient will meet 75-100% of estimated needs by follow up Progress: goal met- TF infusing at goal rate Interventions: - Composition, Rate, Route, Recommended Modifications, Collaboration with other providers Monitoring/Evaluation: -Total energy intake, Total protein intake, Formula/Solution, Weight change Signed: Gretchen Rosales RD, LD, CNSC
--- NOTE | 2019-12-30 17:11 | NUR ---
Progress Note Subjective No acute overnight events. Patient slept last night with dose of ambien. Physical Exam Vitals: Temp: 98.7 P: 70 BP: 113/79 RR: 20 SpO2 98% on 2L General Appearance: The patient is non-verbal, appears to be in mild distress on 2L nasal cannula HEENT: Head is normocephalic, atraumatic. Nontender sinuses. Pupils are equal and reactive. The nares are patent. Oropharynx is moist and clear without lesions. Neck: Supple without lymphadenopathy. No JVD. 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 Normal S1 and S2 without S3/S4. No murmurs, rubs or gallops. Peripheral pulses symmetric +2. Respiratory / Chest: Course breathsounds in left lung field, primarily in left lower lobe. right upper chest permacath in place with no erythema or discharge Abdomen: Soft, nontender, nondistended with good bowel sounds heard. No clinical organomegaly. Peg tube is in place with no erythema or discharge. Renal: There is no costovertebral angle tenderness. Extremities: Without cyanosis, clubbing or edema. Preserved ROM. Neurological: Unable to assess orientation, is alert and responds to verbal stimuli, rigid RUE and RLE with no autonomous movement. LUE and LLE moving but weak. Assessment/Plan #Aspiration pneumonia due to dysphagia, improved - suspect aspiration event occurred at senior care where he was receiving bolus feeds - continue zosyn for total of 7 days #acute hypoxemic respiratory failure secondary to pneumonia - weaning O2 as tolerated - for now requires 2L NC on discharge to senior care, can be titrated then. 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
--- NOTE | 2019-12-30 18:11 | NUR ---
Spoke with pt's daughter at bedside. Informed her that per Dr. Nolan Monterroso, plan is to discharge back to [place] tomorrow after dialysis. IMM letter discussed. She verbalized understanding. Offered copy to daughter, but she refused another copy. Signed copy placed in chart.
--- NOTE | 2019-12-30 18:39 | NUR ---
PT RESTING ON BED BED SIDE REPORT GIVEN TO ONCOMING NURSE
--- NOTE | 2019-12-30 20:00 | NUR ---
PEG tube residuals checked, noted 40ml. Will continue to monitor.
[2019-12-30] MEDS: MELATONIN 3 MG TAB PO SCH (21:09)
[2019-12-30] MEDS: ATORVASTATIN 20 MG TAB PEG SCH (21:09)
[2019-12-31] VITALS: BP 141/79
--- NOTE | 2019-12-31 | NUR ---
PEG tube residuals checked, noted 5ml. Will continue to monitor.
[2019-12-31] MEDS: METOCLOPRAMIDE HCL 10 MG/2ML VIAL IV SCH ×3 (00:20→12:52)
[2019-12-31] MEDS: ALBUTEROL/IPRATROPIUM 3 ML NEB NEB SCH ×3 (03:55→11:13)
[2019-12-31 04:00] VITALS: BP 152/73
[2019-12-31] MEDS: PIPERACILLIN/TAZO 2.25 GM 50 ML IV SCH ×2 (04:06→09:24)
--- NOTE | 2019-12-31 04:08 | NUR ---
PEG tube residuals checked, noted 5ml. Will continue to monitor.
[2019-12-31] MEDS: HEPARIN SOD (PORCINE) 5,000 UNIT/ML VIAL SC SCH ×2 (05:23→14:00)
--- NOTE | 2019-12-31 07:00 | NUR ---
Received bedside shift report from Preeti ORTIZ. Patient awake, alert, no visible signs of distress noted. Family at bedside. Bed in low position, call light within reach.
--- NOTE | 2019-12-31 07:04 | NUR ---
Bedside report and walking rounds completed with oncoming nurse. Patient in bed, daughter at bedside, with call light within reach. No issues or concerns noted.
[2019-12-31 07:57] VITALS: BP 138/82
[2019-12-31 08:21] VITALS: BP 138/82
[2019-12-31] MEDS ORDERED: LORAZEPAM 1 MG TAB GT PRN (09:00)
[2019-12-31] MEDS: ASPIRIN 81 MG CHEW TAB PEG SCH (09:23)
[2019-12-31] MEDS: POLYETHYLENE GLYCOL 3350 17 GM PACK PO SCH (09:24)
[2019-12-31] MEDS: CARVEDILOL 12.5 MG TAB PEG SCH (09:24)
[2019-12-31] MEDS: AMANTADINE HCL 100 MG CAP PEG SCH (09:24)
[2019-12-31] MEDS: ALLOPURINOL 100 MG TAB PEG SCH (09:24)
--- NOTE | 2019-12-31 09:27 | NUR ---
NURSING FACILITY DISCHARGE INFORMATION PATIENT HAS BEEN ACCEPTED TO: NAME:MAICOL REYNOSO ADDRESS:[address] [place] [address] ACCEPTING MD:MARYBETH ROOM:200 NURSE CALL REPORT TO: [phone] IMM SIGNED AND OBTAINED (if applicable): YES THE FOLLOWING DOCUMENTS MUST ACCOMPANY PATIENT FOR TRANSFER: COPIED CHART:PACKET
[2019-12-31 11:44] VITALS: BP 101/55
--- NOTE | 2019-12-31 13:49 | NUR ---
SPOKE WITH DAUGHTER GOT OOH DNR FILED ON CHART, AND GAVE COPIES TO DAUGHTER, SHE WOULD LIKE TO USE [facility] IF AVAILABLE FOR TRANSPORT TO FACILITY. LET NURSE KNOW.
[2019-12-31] MEDS ORDERED: SEROQUEL25 MG PO (14:09)
--- NOTE | 2019-12-31 14:25 | NUR ---
Discharge Summary Patient: Davis Alaniz Admission date: 12/25/2019 Discharge date: 12/31/2019 Attending physician: Noel Monterroso MD Consultation: Dr Beltran, Nephrology Admitting Diagnosis: Aspiration pneumonia, dysphagia due to CVA, acute hypoxemic respiratory failure, CKD stage 5, Hypokalemia, functional quadriplegia, insomnia, hypertension Discharge Diagnosis: Aspiration pneumonia, dysphagia due to CVA, acute hypoxemic respiratory failure, CKD stage 5, Hypokalemia, functional quadriplegia, insomnia, hypertension Procedures: None Hospital Course: Mr Alaniz is a 79 yo M with PMH significant for CKD stage 5 currently on scheduled dialysis ([facility] HD, has right permacath), 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 He had LLL consolidation on CXR in ED and started on Zosyn and Azithromycin covering for aspiration pneumonia along with atypicals. Patient was receiving bolus feeds at his custodial through PEG tube, however on this admission during deep suctioning, we withdrew ~100cc of creamy white colored liquid which looked suspiciously like tube feeds. Due to this concern, we decided against bolus feeds and instead are giving continuous tube feeds at a slower rate with help of venetian blind machine operator. Blood cultures were negative this admission. Completed 7 days of Zosyn and 3 days of azithromycin. He was also receiving his scheduled dialysis during this admission and will continue upon discharge. Note, patient suffered from insomnia this admission and received 1 time dose of Ambien 5mg with some success. However at times he is agitated so we have switched to Seroquel 12.5mg at bedtime which is to be continued at his custodial. Also, please avoid anticoagulation in Mr Alaniz as he has a history of significant bleeding in the past and has an IVC filter in place. Patient continues to require 2L nasal cannula and can be weaned as tolerated in outpatient setting. Physical Exam: Vitals: Temp: 97.7 P: 60BP: 138/82 R: 18 SpO2: 100% on 2L NC General Appearance: The patient is non-verbal, appears to be in mild distress on 2L nasal cannula HEENT: Head is normocephalic, atraumatic. Nontender sinuses. Pupils are equal and reactive. The nares are patent. Oropharynx is moist and clear without lesions. Neck: Supple without lymphadenopathy. No JVD. 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 Normal S1 and S2 without S3/S4. No murmurs, rubs or gallops. Peripheral pulses symmetric +2. Respiratory / Chest: Course breathsounds in left lung field, primarily in left lower lobe. right upper chest permacath in place with no erythema or discharge Abdomen: Soft, nontender, nondistended with good bowel sounds heard. No clinical organomegaly. Peg tube is in place with no erythema or discharge. Renal: There is no costovertebral angle tenderness. Extremities: Without cyanosis, clubbing or edema. Preserved ROM. Neurological: Unable to assess orientation, is alert and responds to verbal stimuli, rigid RUE and RLE with no autonomous movement. LUE and LLE moving but w eak. Discharge medications: Discharge plan: Condition on discharge: Good Activity: Bed bound, as tolerated Diet: Renal diet Follow-up: Will be followed by our service at his custodial Time spent on discharge: 45 minutes
--- NOTE | 2019-12-31 14:28 | NUR ---
DC summary addendum In addition to Discharge summary, discharge medications are listed below: Allopurinol 100mg daily Aspirin 81mg daily Atorvastatin 20mg bedtime Carvedilol 12.5mg BID Epoetin daniel 6000 unit subcutaneously TuThSa Combivent 4 inh IH Q4HR Melatonin 6mg PO bedtime Seroquel 12.5mg PO bedtime
--- NOTE | 2019-12-31 14:45 | NUR ---
Dr. Noel Monterroso called to order discharge for the patient. Order read back and verified. Patient to be discharged to [facility]. Report called to Yimi ORTIZ at [phone]. Going to [facility]. Medications reconciled by Dr. Ankur Monterroso.
[2019-12-31] MEDS ORDERED: ATIVAN1 MG GT (14:54)
--- NOTE | 2019-12-31 15:20 | NUR ---
Patient discharged without incident in stable condition. Daughter at bedside. Transferred to stretcher x2 maximum assist. All belongings accounted for.
--- NOTE | 2019-12-31 17:05 | Progress Note ---
DATE: 12/31/2019 Renal Progress note SUBJECTIVE: I am seeing the patient while the patient is undergoing dialysis, he is very somnolent at this time. PHYSICAL EXAMINATION: VITAL SIGNS: Blood pressure 101/55, pulse 80, and respirations 18. GENERAL: The patient is somnolent. He is sleeping. HEENT: No increased JVD. The patient has a tunneled dialysis catheter in the right chest wall area. CARDIOVASCULAR: Regular rate and rhythm. LUNGS: Clear to auscultation bilaterally. ABDOMEN: Positive bowel sounds. EXTREMITIES: No edema, cyanosis, or clubbing. LABORATORY RESULTS: Hemoglobin and hematocrit 8.3 and 26.7 respectively. Sodium 141, potassium 4.3, chloride 105, bicarbonate 28, BUN and creatinine 46 and 1.7 respectively. IMPRESSION: 1. Chronic kidney disease stage 5. 2. Pneumonia. PLAN: The patient is euvolemic. I am seeing the patient where the patient is getting dialysis via the tunneled dialysis catheter with 3 potassium bath, 2.5 calcium bath for 3 hours. We are only going to ultrafilter 500 mL. He does not have much fluid on him. Blood flow rate is about 350- 400, dialysate flow rate is about 800. The patient is tolerating dialysis well. I have discussed the dialysis orders with the dialysis nurse at the patient's bedside. Ather MD ARIANA Duarte/AMY /[id number]
[2019-12-31] MEDS ORDERED: QUETIAPINE FUMARATE 25 MG TAB PO SCH (21:00)
--- NOTE | 2020-01-01 09:01 | Diagnostic Imaging Report ---
PROCEDURE: X-RAY MODIFIED BARIUM SWALLOW COMPARISON: None. INDICATION: Dysphasia Radiation Details: Fluoroscopy time: 0.1 minutes Cumulative dose: 18.2 mGy DISCUSSION: Fluoroscopic examination was performed in conjunction with speech pathology during swallowing a variety of thin and thick liquid consistencies. Provided images demonstrate laryngeal penetration and aspiration. CONCLUSION: Modified barium swallow demonstrating laryngeal penetration and aspiration. Please refer to the speech pathology report for further details. Signed by: Angélica Mauricio MD on 01/01/2020 8:58 AM
== END 2019-12-31 15:15 | DRG 177 ==
LOC: ER 11:40 → ERHOLD 13:32 → MED/SURG2 15:57
PROVIDERS: ADMIT Internal Medicine; ATTEND Internal Medicine
PROC: 5A1D70Z Performance of Urinary Filtration, Intermittent, Less than 6 Hours Per Day (ICD-10-PCS; principal; 2019-12-25)
DX: J69.0 Pneumonitis due to inhalation of food and vomit (principal); N18.6 End stage renal disease; J96.01 Acute respiratory failure with hypoxia; R53.2 Functional quadriplegia; I12.0 Hypertensive chronic kidney disease with stage 5 chronic kidney disease or end stage renal disease; I69.354 Hemiplegia and hemiparesis following cerebral infarction affecting left non-dominant side; E87.6 Hypokalemia; Z95.828 Presence of other vascular implants and grafts; D63.1 Anemia in chronic kidney disease; Z93.1 Gastrostomy status; I69.321 Dysphasia following cerebral infarction; G47.00 Insomnia, unspecified
CPT/HCPCS: 31720; 36415; 71045; 74230; 80048; 80053; 82550; 82553; 83605; 83735; 83880; 84100; 84484; 85025; 85610; 85730; 86705; 86707; 87040; 93005; 94640; 97139; 99251; 99284; J0456; J1644; J2543; J2765; J7030; U0002

== ENCOUNTER 2020-01-02 11:50 | Inpatient (IN) | payer MEDICARE ==
[~2020-01-02] VITALS: Ht 177.8 cm; Wt 56.7 kg
[~2020-01-02 11:50] MED LIST: ACETAMINOPHEN325 M1 PO; ALLOPURINOL100 MG PEG; AMANTADINE100 MG PEG; AMLODIPINE BESY10 MG PO; ASPIRIN81 MG PEG; ATIVAN1 MG GT; ATORVASTATIN CA20 MG PEG; COMBIVENT RESPIM4 GM IH; COREG12.5 MG PEG; HEPARIN SO1000 UNIT1 IV; MELATONIN3 MG PO; PIPERACIL-TAZ2.25 GM IV; RETACRIT10000 UNIT SC; SEROQUEL25 MG PO
[2020-01-02 13:03] LABS: BASOPHILS # (AUTO) 0.1 (0.0-0.1); BASOPHILS % 0.3 % (0.0-1.0); HEMATOCRIT 29.9 % (38.2-49.6); HEMOGLOBIN 9.4 g/dL (14.0-18.0); LYMPHOCYTES # (AUTO) 1.4 (1.0-3.2); LYMPHOCYTES % 4.6 % (18.0-39.1); MEAN CORPUSCULAR HEMOGLOBIN 30.5 pg (28-32); MEAN CORPUSCULAR HGB CONC 31.4 g/dL (31-35); MEAN CORPUSCULAR VOLUME 97.1 fL (81-99); MONOCYTES # (AUTO) 0.9 (0.2-0.8); NEUTROPHILS # (AUTO) 27.3 (2.1-6.9); NEUTROPHILS % 91.3 % (38.7-80.0); PLATELET COUNT 389 x10e3/uL (140-360); RED BLOOD COUNT 3.08 x10e6/uL (4.3-5.7)
[2020-01-02 13:15] LABS: INR 1.12
[2020-01-02 13:16] LABS: PARTIAL THROMBOPLASTIN TIME 31.3 seconds (23.8-35.5)
[2020-01-02 13:22] LABS: ALBUMIN 3.4 g/dL (3.5-5.0); ALBUMIN/GLOBULIN RATIO 0.8 (0.8-2.0); ANION GAP 19.9 mmol/L (8-16); CALCIUM 10.3 mg/dL (8.4-10.2); CREATININE, SERUM 2.1 mg/dL (0.72-1.25); MAGNESIUM 1.9 MG/DL (1.3-2.1); POTASSIUM 4.9 mmol/L (3.5-5.1)
[2020-01-02 13:32] LABS: CREATINE KINASE MB 1.6 ng/mL (0-5.0)
[2020-01-02] MEDS ORDERED: MEROPENEM 1GM 100 ML IV SCH (14:30)
[2020-01-02] MEDS ORDERED: SODIUM CHLORIDE 0.9% 1000ML 1,000 ML IV SCH (14:45)
[2020-01-02] MEDS: AZITHROMYCIN 500MG/SOD CHL 0.9% 250ML BAG IV SCH ×2 (15:18→18:34)
[2020-01-02 17:24] VITALS: BP 111/57
[2020-01-02 17:32] VITALS: BP 141/96
[2020-01-02] MEDS ORDERED: HEPARIN SOD (PORCINE) 1000 UNIT/ML SDV IV PRN (19:30)
[2020-01-02] MEDS: EPOETIN ALFA-EPBX 10,000 UNIT/ML VIAL SC SCH (19:30)
[2020-01-02] MEDS: IPRATROPIUM BROMIDE 0.02% 2.5 ML NEB NEB SCH (19:50)
[2020-01-02] MEDS: ALBUTEROL SULF 0.083% NEB SOLN 3 ML NEB NEB SCH ×2 (19:50→23:40)
[2020-01-02 19:58] VITALS: BP 132/80
[2020-01-02 20:01] VITALS: BP 132/80
[2020-01-02] MEDS: MEROPENEM 1GM 100 ML IV SCH (21:00)
[2020-01-02] MEDS: LORAZEPAM 1 MG TAB GT SCH (21:00)
[2020-01-02] MEDS: ATORVASTATIN 20 MG TAB PEG SCH (21:00)
[2020-01-02] MEDS: HEPARIN SOD (PORCINE) 5,000 UNIT/ML VIAL SC SCH (21:50)
[2020-01-02] MEDS: MELATONIN 3 MG TAB PO SCH (21:50)
[2020-01-02 22:01] LABS: CREATINE KINASE MB 1.6 ng/mL (0-5.0)
[2020-01-03] VITALS (8 sets, daily range): BP systolic 83–142; BP diastolic 57–88
[2020-01-03] MEDS: ALBUTEROL SULF 0.083% NEB SOLN 3 ML NEB NEB SCH ×6 (03:45→23:25)
[2020-01-03] MEDS: IPRATROPIUM BROMIDE 0.02% 2.5 ML NEB NEB SCH ×4 (03:45→19:20)
[2020-01-03 05:23] LABS: BASOPHILS % 0.2 % (0.0-1.0); EOSINOPHILS % 0.1 % (0.0-6.0); HEMOGLOBIN 8.2 g/dL (14.0-18.0); LYMPHOCYTES # (AUTO) 1.3 (1.0-3.2); LYMPHOCYTES % 7.6 % (18.0-39.1); MEAN CORPUSCULAR HEMOGLOBIN 30.6 pg (28-32); MEAN CORPUSCULAR HGB CONC 31.5 g/dL (31-35); MONOCYTES # (AUTO) 0.7 (0.2-0.8); MONOCYTES % 4.5 % (4.4-11.3); NEUTROPHILS # (AUTO) 14.4 (2.1-6.9); NEUTROPHILS % 87.1 % (38.7-80.0); PLATELET COUNT 301 x10e3/uL (140-360); RED BLOOD COUNT 2.68 x10e6/uL (4.3-5.7); RED CELL DISTRIBUTION WIDTH 16.6 % (11.7-14.4)
[2020-01-03 05:45] LABS: ALBUMIN 3.1 g/dL (3.5-5.0); ALBUMIN/GLOBULIN RATIO 0.8 (0.8-2.0); ANION GAP 16.7 mmol/L (8-16); CALCIUM 9.7 mg/dL (8.4-10.2); CREATININE, SERUM 2.46 mg/dL (0.72-1.25); POTASSIUM 3.7 mmol/L (3.5-5.1)
[2020-01-03] MEDS: HEPARIN SOD (PORCINE) 5,000 UNIT/ML VIAL SC SCH ×4 (06:00→22:00)
[2020-01-03 06:10] LABS: CREATINE KINASE MB 1.5 ng/mL (0-5.0)
[2020-01-03] MEDS: POLYETHYLENE GLYCOL 3350 17 GM PACK PO SCH (09:00)
[2020-01-03] MEDS: MEROPENEM 1GM 100 ML IV SCH ×2 (09:06→21:00)
[2020-01-03] MEDS: CARVEDILOL 12.5 MG TAB PEG SCH ×2 (09:13→18:00)
[2020-01-03] MEDS: AMANTADINE HCL 100 MG CAP PEG SCH ×2 (09:13→18:00)
[2020-01-03] MEDS: ALLOPURINOL 100 MG TAB PEG SCH (09:13)
[2020-01-03] MEDS: ASPIRIN 81 MG CHEW TAB PEG SCH (09:13)
[2020-01-03] MEDS ORDERED: SODIUM CHLORIDE 0.9% 1000ML 2,000 ML IV PRN (17:00)
[2020-01-03] MEDS: MELATONIN 3 MG TAB PO SCH (21:00)
[2020-01-03] MEDS: LORAZEPAM 1 MG TAB GT SCH (21:00)
[2020-01-03] MEDS: ATORVASTATIN 20 MG TAB PEG SCH (21:00)
[2020-01-03] MEDS: ACETYLCYSTEINE 200 MG/ML 4ML VIAL INH SCH (23:25)
[2020-01-04] VITALS (7 sets, daily range): BP systolic 83–138; BP diastolic 54–90
[2020-01-04] MEDS: ACETYLCYSTEINE 200 MG/ML 4ML VIAL INH SCH ×6 (00:10→20:10)
[2020-01-04] MEDS: ALBUTEROL SULF 0.083% NEB SOLN 3 ML NEB NEB SCH ×6 (01:10→20:10)
[2020-01-04] MEDS: IPRATROPIUM BROMIDE 0.02% 2.5 ML NEB NEB SCH ×4 (04:00→20:10)
[2020-01-04] MEDS: HEPARIN SOD (PORCINE) 5,000 UNIT/ML VIAL SC SCH (05:49)
[2020-01-04 06:03] LABS: BASOPHILS % 0.2 % (0.0-1.0); EOSINOPHILS # (AUTO) 0.1 (0.0-0.4); EOSINOPHILS % 0.4 % (0.0-6.0); HEMATOCRIT 23.7 % (38.2-49.6); HEMOGLOBIN 7.5 g/dL (14.0-18.0); LYMPHOCYTES # (AUTO) 1.2 (1.0-3.2); LYMPHOCYTES % 8.9 % (18.0-39.1); MEAN CORPUSCULAR HEMOGLOBIN 31.1 pg (28-32); MEAN CORPUSCULAR HGB CONC 31.6 g/dL (31-35); MEAN CORPUSCULAR VOLUME 98.3 fL (81-99); MONOCYTES # (AUTO) 0.6 (0.2-0.8); MONOCYTES % 4.2 % (4.4-11.3); NEUTROPHILS # (AUTO) 11.4 (2.1-6.9); NEUTROPHILS % 85.8 % (38.7-80.0); PLATELET COUNT 238 x10e3/uL (140-360); RED BLOOD COUNT 2.41 x10e6/uL (4.3-5.7); RED CELL DISTRIBUTION WIDTH 16.5 % (11.7-14.4)
[2020-01-04 06:36] LABS: ALBUMIN/GLOBULIN RATIO 0.5 (0.8-2.0); ANION GAP 12.6 mmol/L (8-16); CALCIUM 8.7 mg/dL (8.4-10.2); CREATININE, SERUM 1.94 mg/dL (0.72-1.25); POTASSIUM 3.6 mmol/L (3.5-5.1)
[2020-01-04] MEDS: CARVEDILOL 12.5 MG TAB PEG SCH (09:00)
[2020-01-04] MEDS: POLYETHYLENE GLYCOL 3350 17 GM PACK PO SCH (09:00)
[2020-01-04] MEDS: MEROPENEM 1GM 100 ML IV SCH ×2 (10:00→20:30)
[2020-01-04] MEDS: ASPIRIN 81 MG CHEW TAB PEG SCH (10:00)
[2020-01-04] MEDS: ALLOPURINOL 100 MG TAB PEG SCH (10:00)
[2020-01-04] MEDS: AMANTADINE HCL 100 MG CAP PEG SCH ×2 (10:00→18:26)
[2020-01-04 14:17] LABS: OCCULT BLOOD STOOL POSITIVE (NEGATIVE)
[2020-01-04 15:17] LABS: C DIFFICILE TOXIN A&B AMP PROB **POSITIVE** (NEGATIVE)
[2020-01-04] MEDS: VANCOMYCIN 250MG/5ML ORAL SOLN PEG SCH (18:26)
[2020-01-04] MEDS: LORAZEPAM 1 MG TAB GT SCH (20:30)
[2020-01-04] MEDS: ATORVASTATIN 20 MG TAB PEG SCH (20:30)
[2020-01-04] MEDS: MELATONIN 3 MG TAB PO SCH (20:30)
[2020-01-04] MEDS: EPOETIN ALFA-EPBX 10,000 UNIT/ML VIAL SC SCH (21:35)
[2020-01-05] VITALS (7 sets, daily range): BP systolic 103–171; BP diastolic 66–88
[2020-01-05] MEDS: ACETYLCYSTEINE 200 MG/ML 4ML VIAL INH SCH ×6 (00:20→19:52)
[2020-01-05] MEDS: IPRATROPIUM BROMIDE 0.02% 2.5 ML NEB NEB SCH ×4 (04:50→19:25)
[2020-01-05] MEDS: ALBUTEROL SULF 0.083% NEB SOLN 3 ML NEB NEB SCH ×5 (04:50→19:25)
[2020-01-05] MEDS: VANCOMYCIN 250MG/5ML ORAL SOLN PEG SCH ×4 (05:56→18:00)
[2020-01-05 07:02] LABS: BASOPHILS % 0.1 % (0.0-1.0); EOSINOPHILS # (AUTO) 0.1 (0.0-0.4); HEMATOCRIT 21.3 % (38.2-49.6); LYMPHOCYTES % 11.9 % (18.0-39.1); MEAN CORPUSCULAR HEMOGLOBIN 30.3 pg (28-32); MEAN CORPUSCULAR HGB CONC 31.5 g/dL (31-35); MEAN CORPUSCULAR VOLUME 96.4 fL (81-99); MONOCYTES # (AUTO) 0.5 (0.2-0.8); MONOCYTES % 6.1 % (4.4-11.3); NEUTROPHILS # (AUTO) 6.8 (2.1-6.9); NEUTROPHILS % 80.7 % (38.7-80.0); PLATELET COUNT 262 x10e3/uL (140-360); RED BLOOD COUNT 2.21 x10e6/uL (4.3-5.7); RED CELL DISTRIBUTION WIDTH 16.4 % (11.7-14.4)
[2020-01-05 07:16] LABS: HEMOGLOBIN 6.7 g/dL (14.0-18.0)
[2020-01-05 07:31] LABS: ALBUMIN/GLOBULIN RATIO 0.5 (0.8-2.0); ANION GAP 11.4 mmol/L (8-16); CALCIUM 9.1 mg/dL (8.4-10.2); CREATININE, SERUM 2.02 mg/dL (0.72-1.25); POTASSIUM 3.4 mmol/L (3.5-5.1)
[2020-01-05] MEDS ORDERED: SODIUM CHLORIDE 0.9% 250ML 250 ML IV ONE ×2 (07:45→14:45)
[2020-01-05] MEDS: PANTOPRAZOLE 40 MG 10ML VIAL IV SCH ×3 (09:17→21:00)
[2020-01-05] MEDS: MEROPENEM 1GM 100 ML IV SCH ×2 (09:17→21:10)
[2020-01-05] MEDS: ASPIRIN 81 MG CHEW TAB PEG SCH (09:17)
[2020-01-05] MEDS: AMANTADINE HCL 100 MG CAP PEG SCH ×2 (09:17→18:00)
[2020-01-05] MEDS: ALLOPURINOL 100 MG TAB PEG SCH (09:17)
[2020-01-05] MEDS ORDERED: POTASSIUM CHLORIDE 20 MEQ TAB CR PO ONE (10:00)
[2020-01-05] MEDS: FUROSEMIDE INJ 10 MG/ML 4 ML VIAL IV SCH (19:37)
[2020-01-05] MEDS: LORAZEPAM 1 MG TAB GT SCH (21:00)
[2020-01-05] MEDS: MELATONIN 3 MG TAB PO SCH (21:00)
[2020-01-05] MEDS ORDERED: SODIUM CHLORIDE 0.9% 250ML 250 ML ONE (22:38)
[2020-01-06] VITALS (7 sets, daily range): BP systolic 136–177; BP diastolic 80–94
[2020-01-06] MEDS: IPRATROPIUM BROMIDE 0.02% 2.5 ML NEB NEB SCH ×4 (00:20→19:40)
[2020-01-06] MEDS: ALBUTEROL SULF 0.083% NEB SOLN 3 ML NEB NEB SCH ×6 (00:25→19:40)
[2020-01-06] MEDS: FUROSEMIDE INJ 10 MG/ML 4 ML VIAL IV SCH (02:22)
[2020-01-06] MEDS: ACETYLCYSTEINE 200 MG/ML 4ML VIAL INH SCH ×5 (04:15→19:40)
[2020-01-06] MEDS: VANCOMYCIN 250MG/5ML ORAL SOLN PEG SCH ×5 (06:34→22:45)
[2020-01-06 07:22] LABS: BASOPHILS % 0.1 % (0.0-1.0); EOSINOPHILS # (AUTO) 0.1 (0.0-0.4); EOSINOPHILS % 1.6 % (0.0-6.0); HEMATOCRIT 30.8 % (38.2-49.6); HEMOGLOBIN 10.1 g/dL (14.0-18.0); LYMPHOCYTES # (AUTO) 1.2 (1.0-3.2); LYMPHOCYTES % 13.5 % (18.0-39.1); MEAN CORPUSCULAR HEMOGLOBIN 29.9 pg (28-32); MEAN CORPUSCULAR HGB CONC 32.8 g/dL (31-35); MEAN CORPUSCULAR VOLUME 91.1 fL (81-99); MONOCYTES # (AUTO) 0.6 (0.2-0.8); MONOCYTES % 7.1 % (4.4-11.3); NEUTROPHILS # (AUTO) 6.6 (2.1-6.9); NEUTROPHILS % 77.4 % (38.7-80.0); PLATELET COUNT 306 x10e3/uL (140-360); RED BLOOD COUNT 3.38 x10e6/uL (4.3-5.7); RED CELL DISTRIBUTION WIDTH 17.7 % (11.7-14.4)
[2020-01-06 07:41] LABS: ALBUMIN 2.5 g/dL (3.5-5.0); ALBUMIN/GLOBULIN RATIO 0.6 (0.8-2.0); ANION GAP 19.1 mmol/L (8-16); CALCIUM 9.5 mg/dL (8.4-10.2); CREATININE, SERUM 1.94 mg/dL (0.72-1.25); POTASSIUM 4.1 mmol/L (3.5-5.1)
[2020-01-06 08:17] LABS: FERRITIN 992.83 ng/mL (21.81-274.66)
[2020-01-06] MEDS: PANTOPRAZOLE 40 MG 10ML VIAL IV SCH ×2 (09:55→22:45)
[2020-01-06] MEDS: ALLOPURINOL 100 MG TAB PEG SCH (09:55)
[2020-01-06] MEDS: AMANTADINE HCL 100 MG CAP PEG SCH ×2 (09:55→17:14)
[2020-01-06] MEDS: MEROPENEM 1GM 100 ML IV SCH ×2 (09:55→22:45)
[2020-01-06] MEDS: LORAZEPAM 1 MG TAB GT SCH (22:45)
[2020-01-06] MEDS: MELATONIN 3 MG TAB PO SCH (22:45)
[2020-01-07] VITALS: BP 141/81
[2020-01-07] MEDS: ACETYLCYSTEINE 200 MG/ML 4ML VIAL INH SCH ×4 (00:02→10:56)
[2020-01-07] MEDS: ALBUTEROL SULF 0.083% NEB SOLN 3 ML NEB NEB SCH ×4 (00:02→10:45)
[2020-01-07] MEDS: IPRATROPIUM BROMIDE 0.02% 2.5 ML NEB NEB SCH ×3 (00:02→10:45)
[2020-01-07 01:15] VITALS: BP 141/81
[2020-01-07 04:00] VITALS: BP 146/99
[2020-01-07] MEDS: VANCOMYCIN 250MG/5ML ORAL SOLN PEG SCH (06:08)
[2020-01-07 08:07] VITALS: BP 163/95
[2020-01-07 08:31] VITALS: BP 163/95
[2020-01-07 12:11] VITALS: BP 136/90
== END 2020-01-07 13:29 | disposition home or self-care (01) | DRG 871 ==
LOC: ER 12:12 → ERHOLD 14:43 → MED/SURG2 17:15
PROVIDERS: ADMIT Internal Medicine; ATTEND Internal Medicine
PROC: 5A1D70Z Performance of Urinary Filtration, Intermittent, Less than 6 Hours Per Day (ICD-10-PCS; principal; 2020-01-03)
PROC: 30233N1 Transfusion of Nonautologous Red Blood Cells into Peripheral Vein, Percutaneous Approach (ICD-10-PCS; 2020-01-05)
DX: A41.9 Sepsis, unspecified organism (principal); J96.90 Respiratory failure, unspecified, unspecified whether with hypoxia or hypercapnia; J69.0 Pneumonitis due to inhalation of food and vomit; N18.6 End stage renal disease; A04.72 Enterocolitis due to Clostridium difficile, not specified as recurrent; N17.9 Acute kidney failure, unspecified; Z68.1 Body mass index [BMI] 19.9 or less, adult; I13.2 Hypertensive heart and chronic kidney disease with heart failure and with stage 5 chronic kidney disease, or end stage renal disease; K92.2 Gastrointestinal hemorrhage, unspecified; E87.1 Hypo-osmolality and hyponatremia; F03.90 Unspecified dementia, unspecified severity, without behavioral disturbance, psychotic disturbance, mood disturbance, and anxiety; I69.311 Memory deficit following cerebral infarction; E86.0 Dehydration; E11.22 Type 2 diabetes mellitus with diabetic chronic kidney disease; Z99.2 Dependence on renal dialysis; R63.6 Underweight; I50.9 Heart failure, unspecified; D63.1 Anemia in chronic kidney disease; E11.51 Type 2 diabetes mellitus with diabetic peripheral angiopathy without gangrene; I25.10 Atherosclerotic heart disease of native coronary artery without angina pectoris; Z11.59 Encounter for screening for other viral diseases
CPT/HCPCS: 31720; 36415; 71045; 80053; 82270; 82550; 82553; 82607; 82728; 82746; 83540; 83605; 83735; 83880; 84466; 84484; 85025; 85045; 85610; 85730; 86850; 86900; 86920; 87040; 87070; 87186; 87205; 87493; 90962; 93005; 94640; 99284; J0456; J1644; J1940; J7030; J7050; P9016; U0002